=== PATIENT | female | born 1950 | race Caucasian/White ===

== ENCOUNTER 2021-04-21 23:58 | Emergency (ER) | payer OTHER ==
[~2021-04-21] VITALS: Ht 162.6 cm; Wt 78.9 kg
[2021-04-22] MEDS ORDERED: NEXIUM20 M1 (00:25)
[2021-04-22] MEDS ORDERED: [UNRECOGNIZED DRUG - OTHER] (00:25)
[2021-04-22] MEDS ORDERED: COZAAR25 MG (00:26)
[2021-04-22] MEDS ORDERED: NAMENDA10 MG (00:26)
[2021-04-22] MEDS ORDERED: CARDIZEM30 MG (00:26)
[2021-04-22] MEDS ORDERED: NEXIUM 24HR20 M1 (00:26)
[2021-04-22] MEDS ORDERED: ZANAFLEX2 M1 (00:27)
[2021-04-22] MEDS ORDERED: CLONAZEPAM0.5 MG (00:28)
[2021-04-22] MEDS ORDERED: NEURONTIN300 MG (00:28)
[2021-04-22] MEDS ORDERED: KETO10TA2 PO (05:38)
[2021-04-22] MEDS ORDERED: PYRIDIUM DS200 MG PO (05:38)
== END 2021-04-22 05:46 | disposition home or self-care (01) ==
LOC: ER 23:58
DX: R30.0 Dysuria (principal); R10.2 Pelvic and perineal pain; D26.9 Other benign neoplasm of uterus, unspecified

== ENCOUNTER 2022-11-25 07:45 | Emergency (ER) | payer OTHER ==
[~2022-11-25] VITALS: Ht 162.6 cm; Wt 78.9 kg
[~2022-11-25 07:45] MED LIST: CARDIZEM30 MG; CLONAZEPAM0.5 MG; COZAAR25 MG; KETO10TA2 PO; NAMENDA10 MG; NEURONTIN300 MG; NEXIUM 24HR20 M1; NEXIUM20 M1; PYRIDIUM DS200 MG PO; ZANAFLEX2 M1; [UNRECOGNIZED DRUG - OTHER]
[2022-11-25] MEDS ORDERED: CRESTOR5 MG PO (08:07)
[2022-11-25] MEDS ORDERED: CLONAZEPAM2 MG PO (08:08)
[2022-11-25] MEDS ORDERED: PEPCID AC20 MG PO (12:49)
== END 2022-11-25 13:48 | disposition home or self-care (01) ==
LOC: ER 07:45
DX: N39.0 Urinary tract infection, site not specified (principal); R10.13 Epigastric pain; E78.00 Pure hypercholesterolemia, unspecified; I10 Essential (primary) hypertension; M19.90 Unspecified osteoarthritis, unspecified site; K29.70 Gastritis, unspecified, without bleeding; K57.30 Diverticulosis of large intestine without perforation or abscess without bleeding

== ENCOUNTER 2024-07-16 17:31 | Emergency (ER) | payer OTHER ==
[~2024-07-16] VITALS: Ht 162.6 cm; Wt 79.8 kg
[~2024-07-16 17:31] MED LIST changes: +CLONAZEPAM2 MG PO; +CRESTOR5 MG PO; +PEPCID AC20 MG PO
[2024-07-16 17:39] VITALS: BP 136/82; O2SAT 96
[2024-07-16] MEDS ORDERED: 0.9 % SODIUM CHLORIDE 500 ML IV ONE (18:15)
[2024-07-16 18:43] LABS: HEMATOCRIT 33.8 % (36.0-45.00); HEMOGLOBIN 11.5 g/dL (12.0-15.00); MEAN CELL VOLUME 84.3 fL (80.00-100.00); MEAN CORPUSCULAR HEMOGLOBIN 28.6 pg (27.00-32.0); MEAN CORPUSCULAR HGB CONC 33.9 g/dl (32.0-36.0); PLATELET COUNT 410 K/uL (150-450); RED BLOOD COUNT 4.01 M/uL (4.00-6.00); RED CELL DISTRIBUTION WIDTH 15.2 % (11.5-14.5)
[2024-07-16 19:16] LABS: ALBUMIN 3.9 gm/dL (3.4-5.0); BILIRUBIN TOTAL 0.26 mg/dL (0.3-1.2); CALCIUM 9.1 mg/dL (8.5-10.1); CREATININE SERUM 1.36 mg/dL (0.55-1.02); GFR 38.11; GLOBULINA 3.6 G/DL (2.4-3.5); POTASSIUM 4.17 mEq/L (3.5-5.1); TOTAL PROTEIN 7.5 gm/dL (6.4-8.2)
[2024-07-16 19:55] LABS: URINE APPEARANCE Clear; URINE BILIRRUBIN Negative (NEGATIVE); URINE BLOOD Negative; URINE COLOR Yellow; URINE GLUCOSE Negative (NEGATIVE); URINE KETONE Negative (NEGATIVE); URINE LEUKOCYTE Small; URINE NITRATE Negative; URINE PROTEIN Negative (NEGATIVE); URINE UROBILINOGEN 0.2 E.U./dl
[2024-07-16 20:02] LABS: URINE BACTERIA 17.6 uL (0.0-1933); URINE EPITHELIAL CELLS 4.1 uL (0.0-38.8); URINE RBC 4.2 uL (0.0-20.8); URINE WBC 24.2 uL (0.0-23.2)
[2024-07-16 20:10] LABS: URINE CAST 0.15 uL (0.0-1.40)
[2024-07-16] MEDS ORDERED: ACETAMINOPHEN 500 MG GEL..CAP PO ONE (20:15)
[2024-07-16] MEDS ORDERED: ANALPRAM HC 2.530 GM RECTAL (22:15)
[2024-07-16] MEDS ORDERED: BACTRIM DS TAB1 EACH PO (22:15)
== END 2024-07-16 22:26 | disposition home or self-care (01) ==
LOC: ER 17:33
PROVIDERS: Nurse Practitioner Family
DX: R10.2 Pelvic and perineal pain (principal); I10 Essential (primary) hypertension; Z88.6 Allergy status to analgesic agent